=== PATIENT | female | born 1975 | race Caucasian/White ===

== ENCOUNTER → 2023-12-08 11:21 | Outpatient (REF) | payer OTHER, SELFPAY | LOC: RAD 11:21 | PROVIDERS: ATTENDING PHYSICIAN Internal Medicine | DX: M54.2 Cervicalgia (principal); G89.29 Other chronic pain | CPT/HCPCS: 72040 ==

== ENCOUNTER 2024-07-29 12:02 | Emergency (ER) | payer OTHER, SELFPAY ==
[2024-07-29 12:05] VITALS: BP 131/81
--- NOTE | 2024-07-29 13:32 | ED.GENMED ---
History of Present Illness
General
Chief Complaint: Rectal Bleeding
Source: patient
Exam Limitations: none
Time Seen by Provider: 07/29/24 13:06
Nursing documentation reviewed up to this point in time: agreed with
History of Present Illness
History of Present Illness:
Patient to ED with complaint of abdoinal pain/craming, bloody stools. Symptoms started on . States she notes blood in toilet with BM and then shortly after passing stool she feels the sensation to pass more stool but only passes blood. No
fever/chills. +nausea. No diarrhea. States she had a similar evant approx 4 mos ago but resolved without intervention. Brought to ED by spouse for eval. No recent weight changes. No history of prior colonoscopy.
Past History
Past History
ED Past Medical History: GERD
ED Past Surgical History: Gynecological (hysterectomy) and Other (varicose vein surgery)
Social History
Tobacco: Non-smoker
Alcohol: Occasional
Drug: None
Personal: Single
Living: with family
Employment: Other
Family History
Family History: Other
Review of Systems
Review of Systems
Allergies reviewed?: Yes
All Other Systems: ROS reviewed and negative except as documented in HPI and ROS
Constitutional: Reports no symptoms
EENT: Reports no symptoms
Respiratory: Reports no symptoms
Cardiac: Reports no symptoms
ABD/GI: Reports abdominal pain, nausea and bloody stools
: Reports no symptoms
Musculoskeletal: Reports no symptoms
Skin: Reports no symptoms
Neurological: Reports dizzy and weakness
Psychiatric: Reports no symptoms
Phy Exam
General Physical Exam
General Presentation: mild distress
General age: appears stated age
General Skin: warm and dry
General Habitus: normal
General Mental: alert
Pulmonary Exam
Pulmonary Exam: no respiratory distress and chest non tender
Gastrointestinal Exam
Gastrointestinal Exam: normal bowel sounds, soft, no organomegaly and non distended
Palpation: generalized: Mild tenderness
Rectal Exam: normal external exam, hemorrhoids (small flat external hemorrhoids), no rectal mass and no stool (No stool but small amt of blood in vault)
Musculoskeletal Exam
Musculoskeletal Exam: full ROM
Skin Exam
Skin Exam: normal color, warm/dry and no rash
Psychiatric Exam
Psychiatric Exam: normal mood/affect
Course
Orders/Labs/Results
Orders:
Orders
07/29/24 13:31
Iohexol [Omnipaque] See Protocol PO NOW STA
Ondansetron Injectable [Zofran] 4 mg IV NOW STA
07/29/24 13:32
CT Abd/pel W Iv And Oral Contr Urgent
Comment:
Reason For Exam: abdominal cramping, bloody stools
07/29/24 13:45
Complete Blood Count/With Diff Urgent
Comprehensive Metabolic Panel Urgent
Urinalysis Reflex To Culture Urgent
Date Specimen was Collected: 07/29/24
Time Specimen was Collected: 13:38
Abnormal Lab Results
07/29/24
13:45
WBC 3.4 L 10^3/uL
(4.8-10.8)
Absolute Neuts (auto) 1.2 L 10^3/uL
(1.4-6.5)
Neutrophils % 35.1 L %
(42.2-75.2)
Monocytes % 10.5 H %
(1.7-9.3)
Eosinophils % 6.7 H %
(0-6)
07/29/24 13:45
07/29/24 13:45
Vital Signs
Initial and Last Documented VS:
Initial Vital Signs
Temp Pulse Resp BP Pulse Ox
97.6 F 62 16 131/81 99
07/29/24 12:05 07/29/24 12:05 07/29/24 12:05 07/29/24 12:05 07/29/24 12:05
Last Documented Vital Signs
Temp Pulse Resp BP Pulse Ox
97.6 F 80 18 128/77 99
07/29/24 12:05 07/29/24 18:00 07/29/24 18:00 07/29/24 18:00 07/29/24 18:00
MDM/Problems Addressed
Differential Diagnosis Includes:
Patient to ED with complaint of 3 days history abdominal cramping, blood in stool. Rectal exam neg for stool. No bleeding while in dept. Labs unremarkable. CT without findings to explain her symptoms. Discussed results with patient. SHe will
be discharged home and will follow up ith GI this week. given instructions on s/s to return to ED and she is agreeable to plan. Differential to include but not limited to rectal bleed, rectal fissure, hemorrhoids, rectal mass, diverticulitis.
*Radiology
Radiology exam reviewed: radiology read reviewed
*Pulse Oximetry
Patient hypoxic: no
*Critical Care Note
Total Time (30-74mins, 75-104mins- exclusive of procedures): Not Applicable
Update Note
Update Note:
Dr. Durham consulted via tiger text. Ok for discharge, will follow up withpatient in office this week.
ED Attending Note
-
Portions of this chart may have been created with voice recognition software.� Occasional wrong word or��sound alike� substitutions may have occurred due to the inherent limitations of voice recognition software.
Discharge Plan
Departure
Patient Disposition: Home (Routine Discharge)
Date of Disposition: 07/29/24
Time of Disposition: 17:36
Patient with high blood pressure during this ER visit?: No
Condition: Good
Covid-19: Not Applicable
Discharge Problem:
Abdominal cramps
Instructions: Gastrointestinal Bleeding (DC), Abdominal Pain
Prescriptions:
No Action
famotidine [Pepcid] 20 mg Tablet
20 mg PO DAILYPRN PRN (Reason: gerd)
ascorbic acid (vitamin C) [Vitamin C] 500 mg Tablet,Chewable
500 mg PO DAILY
Centrum MultiGummies 80 mcg Tablet,Chewable
1 tab PO DAILY
Referrals:
Jluis Durham MD [Active] - Call in 1-3 days for appt
Adolfo Lilly MD [Family Provider] -
Activity Restrictions/Additional Instructions:
Return to the emergency department immediately for any changes in/worsening of your symptoms.
Interventions
Interventions:
*Risk Screen - Suicide Last Done: 07/29/24 12:05
*General Assessment Last Done: 07/29/24 12:05
*Neglect/Abuse Screening Last Done: 07/29/24 12:05
*ED COVID-19 Vaccine History Last Done: 07/29/24 12:05
*Nursing Disposition Last Done: 07/29/24 18:05
VI-Kvdcpz-Ljazqvhptu Assessment Last Done: 07/29/24 14:03
ED- Cardiac Assessment Last Done: 07/29/24 14:03
ED- Pulmonary Assessment Last Done: 07/29/24 14:03
Discharge Date and Time
Discharge Date/Time: 07/29/24 18:06
Print Language: ARMENIAN
[2024-07-29] MEDS: OMNIPAQUE 50 ML PO (13:52)
[2024-07-29 14:09] LABS: % Basophils 1.5 % (0-2); % Eosinophils 6.7 % (0-6); % Lymphocytes 46.2 % (20.5-51.1); % Monocytes 10.5 % (1.7-9.3); % Neutrophils 35.1 % (42.2-75.2); Absolute Basophils 0.1 10^3/uL (0-0.2); Absolute Eosinophils 0.2 10^3/uL (0-0.7); Absolute Lymphocytes 1.6 10^3/uL (1.2-3.4); Absolute Monocytes 0.4 10^3/uL (0.1-0.6); Absolute Neutrophils 1.2 10^3/uL (1.4-6.5); Hematocrit 41.2 % (37.0-47.0); Hemoglobin 14.4 g/dL (12.0-16.0); Mean Corpuscular Hgb 29.7 pg (27.0-31.0); Mean Corpuscular Volume 84.9 fL (81.0-99.0); Mean Platelet Volume 10.4 fL (7.4-10.4); Nucleated Red Blood Cells % 0 %; Platelet Count 246 10^3/uL (130-400); Red Blood Cell Count 4.85 10^6/uL (4.20-5.40); Red Cell Dist. Width 12.4 % (11.5-14.5); White Blood Cell Count 3.4 10^3/uL (4.8-10.8)
[2024-07-29 14:20] LABS: ALT (SGPT) 24 U/L (0-35); AST (SGOT) 25 U/L (14-36); Albumin 4.6 g/dl (3.5-5.0); Alkaline Phosphatase 62 U/L (38-126); Blood Urea Nitrogen 14 mg/dl (7-17); Calcium 9.9 mg/dl (8.4-10.2); Carbon Dioxide 28 mmol/L (22-30); Chloride 102 mmol/L (98-107); Glucose 90 mg/dl (70-99); Potassium 4.7 mmol/L (3.5-5.1); Sodium 143 mmol/L (135-145); Total Bilirubin 0.5 mg/dl (0.2-1.3); Total Protein 7.2 g/dl (6.3-8.2); eGFR > 60.00
[2024-07-29 14:41] LABS: Urine Albumin Negative (Neg - Trace); Urine Bilirubin Negative (Negative); Urine Character Clear (Clear); Urine Color Yellow; Urine Glucose Negative (Negative); Urine Ketone Negative (Negative); Urine Leukocyte Negative (Negative); Urine Nitrite Negative (Negative); Urine Occult Blood Negative (Negative); Urine Urobilinogen Negative (Neg - 1+)
[2024-07-29 18:00] VITALS: BP 128/77
== END 2024-07-29 18:06 | disposition home or self-care (01) ==
LOC: EMR 12:02
PROVIDERS: Nurse Practitioner; EMERGENCY PHYSICIAN Emergency Medicine; FAMILY PHYSICIAN Internal Medicine
DX: R10.9 Unspecified abdominal pain (principal); K92.1 Melena; R11.0 Nausea; K64.4 Residual hemorrhoidal skin tags; K21.9 Gastro-esophageal reflux disease without esophagitis
CPT/HCPCS: 99284; 74177; 80053; 81003; 85025; Q9967

== ENCOUNTER → 2024-08-15 06:36 | Day surgery (SDC) | payer OTHER, SELFPAY | LOC: GI 06:36 | PROVIDERS: ATTENDING PHYSICIAN Surgery | PROC: 0DBN8ZX Excision of Sigmoid Colon, Via Natural or Artificial Opening Endoscopic, Diagnostic (ICD-10-PCS; 2024-08-15) | DX: Z12.11 Encounter for screening for malignant neoplasm of colon (principal); D12.5 Benign neoplasm of sigmoid colon; K62.5 Hemorrhage of anus and rectum | CPT/HCPCS: 45380; 88305 ==

== ENCOUNTER → 2025-06-21 14:55 | Outpatient (REF) | payer BC, SELFPAY | LOC: WDC 14:55 | PROVIDERS: ATTENDING PHYSICIAN Internal Medicine | DX: Z12.31 Encounter for screening mammogram for malignant neoplasm of breast (principal) | CPT/HCPCS: 77063; 77067 ==

== ENCOUNTER → 2025-07-17 12:24 | Outpatient (REF) | payer BC, SELFPAY | LOC: HWEVLT 12:24 | PROVIDERS: ATTENDING PHYSICIAN Radiology Vascular & Interventional Radiology | DX: I83.893 Varicose veins of bilateral lower extremities with other complications (principal) | CPT/HCPCS: 93970 ==

== ENCOUNTER → 2025-10-09 08:10 | Outpatient (REF) | payer BC, SELFPAY | LOC: HWEVLT 08:10 | PROVIDERS: ATTENDING PHYSICIAN Radiology Vascular & Interventional Radiology | DX: I83.891 Varicose veins of right lower extremity with other complications (principal) | CPT/HCPCS: 36478; C1769 ==